=== PATIENT | female | born 1965 | race Caucasian/White ===

== ENCOUNTER → 2018-04-25 12:50 | Outpatient (CLI) | payer BC, SELFPAY ==
--- NOTE | 2018-04-25 13:03 | VDLE_ITS ---
Reason For Study: LEG PAIN RIGHT LEFT CFV is compressible, spontaneous, phasic, CFV is compressible, spontaneous, phasic, competent and demonstrates normal competent, and demonstrates normal augmentation. augmentation. FV is compressible, spontaneous, phasic, competent and demonstrates normal augmentation. POP V is compressible, spontaneous, phasic, competent and demonstrates normal augmentation. T/P Trunk is compressible. PTV is compressible. RT PerV is compressible. GSV absent due to stripping Thrombus filled varicosities noted mid/dist medial thigh. Procedure Exam performed in department. A preliminary report was called and/or faxed to Dr. Bentley. Interpretation Summary Deep veins of the right lower extremity are patent and compressible segmentally. There is no evidence of right lower extremity deep vein thrombosis. Valvular competence appears intact within the proximal deep venous system on the right . The right great saphenous vein is absent. Acute superficial thrombophlebitis is noted involving superficial varicosities in the mid- and distal right medial thigh. Ordering Physician: FREDERICK PÉREZ Referring Physician: SOMMER GRANDA Performed By: Cherie Muñoz RVT
== END ==
PROVIDERS: Family Provider Student in an Organized Health Care Education/Training Program; PCP Student in an Organized Health Care Education/Training Program
DX: M79.606 Pain in leg, unspecified (principal)
CPT/HCPCS: 93971

== ENCOUNTER 2018-09-09 19:12 | Emergency (ER) | payer BC, SELFPAY ==
[2018-09-09 19:12] VITALS: BP 117/80; PULSE 86; RESP 15; TEMP 36.7; O2SAT 95; BMI 29.0
--- NOTE | 2018-09-09 19:41 | ED.VISSUMM ---
- ER Visit Summary Date of Service: 09/09/18 Chief Complaint: Right thumb laceration History of Present Illness: The patient is a 52 F who presents for evaluation of a right thumb laceration. Patient was washing dishes, and had just washed a knife, when it slipped in her hand and she tried to catch it. It caused a laceration to the radial side of her right thumbnail. Patient does not know when her last tetanus was. She has no other complaints. No loss of function. She is right-handed. Physical Examination: Patient is awake and alert in no distress sitting in a chair. Afebrile and hemodynamically stable. Examination of the right thumb shows a 1 cm superficial laceration to the radial surface of the nailbed in a horizontal direction, no active hemorrhage, no gaping. Distal sensation and motor function are intact. Brisk capillary refill. Remainder of exam unremarkable. Test Results: [] Emergency Department Course and Treatment: Tetanus was updated. The laceration is small and the edges are already well approximated. It will be amenable to Dermabond. Patient washed the wound with soap and rinsed with copious tap water. No foreign bodies noted. The edges were well approximated with a layer of Dermabond. Patient was given wound care instructions. She was given signs to watch for for infection. Patient was discharged home. Treatment Plan: [] Disposition: [] Impression: 1 cm superficial laceration, right thumb This note was generated with [employer] dictation software. It may contain incorrect words, spelling, and punctuation that were not noted in review of the chart prior to signing ED Disposition - Plan for ED Patient: Disposition: Home or Assisted Living Instructions: ED Laceration Ext Skin Glue Referrals: Roberto Chambers, [Primary Care Provider] - 3-5 Days if not improving Additional Instructions: Keep your cut clean and dry. You may protect it with a Band-Aid. Do not put antibacterial ointment on it, as this may mess up the skin glue. The skin glue will come off on its own. You do not have to peel it away. If at any time you are concerned there is infection of the cut, you may remove the skin glue at that time and follow-up either in the emergency department or with your doctor for another evaluation. If you have any worsening of your condition or any new concerning symptoms, please return immediately to the emergency department for another evaluation.
--- NOTE | 2018-09-09 20:24 | ED.RN ---
PATIENT REFUSED TETANUS SHOT
[2018-09-09 20:25] VITALS: BP 117/80; PULSE 86; RESP 15; O2SAT 95
== END 2018-09-09 20:30 | disposition home or self-care (01) ==
PROVIDERS: Emergency Provider Emergency Medicine; Family Provider Student in an Organized Health Care Education/Training Program; PCP Student in an Organized Health Care Education/Training Program
DX: S61.011A Laceration without foreign body of right thumb without damage to nail, initial encounter (principal); W26.0XXA Contact with knife, initial encounter; Y93.G1 Activity, food preparation and clean up; Y92.9 Unspecified place or not applicable
CPT/HCPCS: 12001; 99282

== ENCOUNTER 2020-03-24 20:43 | Emergency (ER) | payer OTHER, SELFPAY ==
[2020-03-24 20:44] VITALS: BP 99/70; PULSE 90; RESP 18; TEMP 36.6; O2SAT 98; BMI 28.0
--- NOTE | 2020-03-24 21:09 | ED.VISSUMM ---
- ER Visit Summary Date of Service: 03/24/20 Chief Complaint: Weakness and fatigue History of Present Illness: The patient is a 54 F who presents with weakness and fatigue that has been getting worse over the past week. Patient states she feels like she might pass out. Patient states she feels weak all over. Patient states nothing makes it better or worse. Patient states she was exposed to family members who were positive for COVID-19. Patient admits to subjective chills. Patient admits to general myalgias. Patient admits to nausea but denies any vomiting. Physical Examination: Vital signs are stable. Patient is afebrile. Patient is in no acute distress. Oral mucosa is pink and moist. Neck is supple. Trachea is midline. There is no JVD noted. Heart was regular rate and rhythm. Lungs showed rales in the bases bilaterally. Abdomen is soft. Bowel sounds are normal. There is no tenderness. There is no rebound or guarding noted. Skin is warm dry. Cranial nerves II through XII are intact. There are no focal motor or sensory deficits noted. Extremities are intact. There is no calf tenderness or edema. Test Results: CBC shows a white blood cell count of 2.9. Comprehensive metabolic profile was essentially within normal limits. Portable 1 view chest x-ray was obtained. On my interpretation, lung bravo are clear. There is normal cardiac silhouette. Bony thorax is normal. There is no acute process noted. Radiologist also interpreted the chest x-ray and agrees. Emergency Department Course and Treatment: Patient was given albuterol inhaler here. Patient was given IV fluids. Patient was given Tylenol. A COVID-19 test was ordered and is a send out. Patient was advised to follow-up with her primary care physician in 3 to 5 days for these results and further evaluation. Patient was instructed to drink plenty fluids. Patient was instructed to continue Tylenol or ibuprofen as needed for any fevers or aches. Patient was instructed return if worse in any way. Patient understood and was agreeable with the plan. All questions were answered. Disposition: Discharge home Impression: 1. Viral illness 2. Suspected COVID-19 This note was generated with [employer] software. It may contain incorrect words, spelling, and punctuation that were not noted in review of the chart prior to signing ED Disposition - Plan for ED Patient: Disposition: Home or Assisted Living Diagnosis: Viral illness, Suspected COVID-19 virus infection Instructions: ED Viral Syndrome Referrals: Roberto Chambers DO [Primary Care Provider] - 3-5 Days
[2020-03-24 21:12] VITALS: BP 127/80; PULSE 85; RESP 15; O2SAT 93
[2020-03-24] MEDS: 0.9% Normal Saline 1,000 ML 999 ML IV (21:15)
--- NOTE | 2020-03-24 21:20 | RAD_ITS ---
STUDY: X-RAY CHEST REASON FOR EXAM: Female, 54 years old. Cough. TECHNIQUE: 1 view COMPARISON: None. FINDINGS: Mild elevation of the left diaphragm. Left bravo are expanded without consolidation, atelectasis or other infiltrates. Normal size heart. Normal mediastinum and osmani. Normal visualized pulmonary arteries. Normal visualized aortic arch and descending thoracic aorta. Normal visualized thoracic spine. Normal visualized ribs, clavicles, and shoulders. There is no demonstrated abnormality of the visualized soft tissue structures of the upper abdomen. RAD/Chest 1 View (Portable) IMPRESSION: No acute cardiopulmonary findings or changes. Negative for major consolidation, atelectasis, other infiltrates or pleural effusion. Normal cardiac size without pulmonary venous congestion or pleural effusion. Electronically Signed: Julianne Roman MD at 21:40 EST , Service support ,
[2020-03-24 21:30] VITALS: BP 113/70; PULSE 89; RESP 22; TEMP 38.5; O2SAT 93
[2020-03-24] MEDS: Acetaminophen 500 MG Tablet 1000 MG PO (21:36)
[2020-03-24 21:46] LABS: AST(SGOT) 49 U/L (15-37); Alanine Aminotransfer ALT/SGPT 71 U/L (13-56); Albumin, Serum 3.3 g/dL (3.2-5.0); Alkaline Phosphatase 72 U/L (45-117); Anion Gap 5 (5-15); BUN 12 mg/dL (7-18); Calcium,Total 8.2 mg/dL (8.5-10.1); Chloride 105 mmol/L (98-107); Creatinine, Serum 0.86 mg/dL (0.55-1.02); EST Glomerular Filtration Rate 74 mL/min (>60); Est Glom Filt Rate - Afr Amer 89 mL/min (>60); Estimated Creatinine Clearance 78.15 ml/min; Globulin 3.2 g/dL (2.2-4.2); Glucose 104 mg/dL (74-106); Potassium 3.9 mmol/L (3.5-5.1); Protein, Total 6.5 g/dL (6.4-8.2); Sodium Level 139 mmol/L (136-145)
[2020-03-24 21:47] LABS: Absolute Neutrophil Count 1.6 X10^3/uL (2.0-7.7); Basophil# 0.01 X10^3/uL; Basophil% 0.3 % (0-1); Hematocrit 45.3 % (37-47); Hemoglobin 15.2 g/dL (12.0-15.0); Lymphocyte % 31.5 % (19-41); Mean Corp Hgb Conc 33.6 g/dL (32-36); Mean Corpuscular Hgb 32.9 pg (27.0-32.0); Mean Corpuscular Volume 98.1 fL (81-99); Mean Platelet Vol. 10.1 fl (6.2-12.0); Monocyte# 0.36 X10^3/uL; Monocyte% 12.6 % (0-10); NRBC Flagged by Analyzer 0 % (0-5); Neutrophil # 1.58 X10^3/uL (2.7-7.7); Neutrophil % 55.3 % (47-70); Platelet Count 127 K/mm3 (150-450); RBC Distribution Width CV 11.4 % (11.6-14.6); RBC Distribution Width SD 41.1 fl (35.1-43.9); Red Blood Count 4.62 M/mm3 (4.2-5.4); White Blood Count 2.9 K/mm3 (4.4-11.0)
[2020-03-24 22:29] VITALS: BP 136/78; PULSE 86; RESP 20; TEMP 37.4; O2SAT 93
== END 2020-03-24 22:31 | disposition home or self-care (01) ==
PROVIDERS: Emergency Provider Emergency Medicine; PCP Student in an Organized Health Care Education/Training Program
DX: B34.9 Viral infection, unspecified (principal); Z20.828 Contact with and (suspected) exposure to other viral communicable diseases
CPT/HCPCS: 71045; 80053; 85025; 87633; 87635; 99284; J7030; U0003